=== PATIENT | female | born 1945 | race Caucasian/White ===

== ENCOUNTER 2020-02-16 21:33 | Emergency (ER) | payer MEDICARE, OTHER ==
[~2020-02-16] VITALS: Ht 144.8 cm; Wt 47.7 kg
[2020-02-16 22:28] VITALS: BP 131/86
--- NOTE | 2020-02-16 23:51 | PHYS DOC ---
Past Medical History Past Medical History: High Cholesterol, Hypertension Past Surgical History: Tonsillectomy, Other Additional Past Surgical Histo: BACK SX Smoking Status: Never Smoker Alcohol Use: None General Adult EDM: Chief Complaint: HEAD INJURY/TRAUMA HPI: HPI: Patient is a 74 year old female who presents with report of head injury after falling yesterday. Patient states that she had fallen backwards and struck the back of her head. She denies having had loss of consciousness. She states that she had finally gotten bleeding under control by the time she went to bed but she has had some headache as well as dizziness and nausea ever since the injury. She states that her doctor instructed her to come in and be evaluated and get CT done. She states that the dizziness feels like things are spinning and states that it is not really bad until she goes from a seated to a standing position or turns her head really quickly. She denies having had any vomiting but states that she is just been nauseated. [] Review of Systems: Review of Systems: Constitutional: Denies fever or chills. [] Respiratory: Denies cough or shortness of breath. [] Cardiovascular: Denies chest pain or edema. [] GI: Denies abdominal pain, vomiting or diarrhea. [] Musculoskeletal: Complains of neck and upper back pain. [] Integument: Denies rash. [] Neurologic: Admits to headache without focal weakness or sensory changes. Patient complains of vertiginous dizziness. [] Heart Score: Risk Factors: Risk Factors: DM, Current or recent (<one month) smoker, HTN, HLP, family history of CAD, obesity. Risk Scores: Score 0 - 3: 2.5% MACE over next 6 weeks - Discharge Home Score 4 - 6: 20.3% MACE over next 6 weeks - Admit for Clinical Observation Score 7 - 10: 72.7% MACE over next 6 weeks - Early Invasive Strategies Allergies: Allergies: Allergies Uncoded Allergies Type Severity Reaction Last Updated Verified PENICILLIN Allergy Unknown 02/16/20 Physical Exam: PE: Constitutional: Well developed, well nourished, no acute distress, non-toxic appearance. [] HENT: Normocephalic, with small healing laceration to the mid parietal region of scalp, bilateral external ears normal, oropharynx moist, no oral exudates, nose normal. [] Eyes: PERRLA, EOMI, conjunctiva normal, no discharge. [] Neck: Normal range of motion, with suboccipital tenderness bilaterally. [] Cardiovascular: Regular rate and rhythm [] Lungs & Thorax: Bilateral breath sounds clear to auscultation [] Extremities: No tenderness, no cyanosis, no clubbing, ROM intact, no edema. [] Neurologic: Alert and oriented X 3, no focal deficits noted. [] Current Patient Data: Vital Signs: Vital Signs Date Time Temp Pulse Resp B/P (MAP) Pulse Ox O2 Delivery O2 Flow Rate FiO2 02/16/20 22:28 98.1 83 16 131/86 (101) 98 Room Air 98.1 EKG: EKG: [] Radiology/Procedures: Radiology/Procedures: [] Impression: PROCEDURE: CT HEAD AND CERVICAL SPINE WO l EXAM: CT HEAD WITHOUT IV CONTRAST CLINICAL HISTORY: fall; head and neck injury COMPARISON: None. TECHNIQUE: Routine CT of the head without contrast. Soft tissues and bone windows were reviewed. PQRS compliance statement - One or more of the following individualized dose reduction techniques were utilized for this study: 1. Automated exposure control 2. Adjustment of the mA and/or kV according to patient size 3. Use of iterative reconstruction technique FINDINGS: There is no evidence of hemorrhage, mass or extra-axial fluid collection. Hart-white differentiation is maintained with no evidence of edema. Subcortical, periventricular as well as deep white matter hypoattenuation likely changes of chronic small vessel disease. There is no mass effect or shift of the intracranial structures. The ventricles, basilar cisterns and cortical sulci are normal in size and configuration for the patients stated age. The cerebellum and brainstem are unremarkable. The calvarium demonstrates no evidence of fracture or focal lesion. There is normal aeration of the visualized paranasal sinuses and mastoid air cells. The visualized portions of the orbits are normal. Small scalp hematoma in the left posterior parietal region. IMPRESSION: No evidence for acute intracranial process. White matter changes likely of chronic small vessel disease. EXAM: CT CERVICAL SPINE WITHOUT IV CONTRAST CLINICAL HISTORY: Reason: fall; head and neck injury / Spl. Instructions: / History: COMPARISON: None available. TECHNIQUE: Helical CT of the cervical spine was performed. Axial, coronal and sagittal reformatted images were also performed. PQRS compliance statement - One or more of the following individualized dose reduction techniques were utilized for this study: 1. Automated exposure control 2. Adjustment of the mA and/or kV according to patient size 3. Use of iterative reconstruction technique FINDINGS: Vertebral body heights are preserved. Severe C4-5 and moderate to severe C5-6 disc height loss. Mild C6-7 disc height loss. Associated small posterior disc bulges at C4-5 and C5-6 resulting in moderate central canal stenosis at these levels. No acute fracture. No spondylolisthesis. Straightening of the normal cervical lordosis. IMPRESSION: 1. Multilevel spondylosis as above 2. Negative acute fracture or subluxation. Electronically signed by: Federico Schuler MD (02/17/2020 12:08 AM) [facility] DICTATED and SIGNED BY: FEDERICO SCHULER MD DATE: 02/17/20 0008 Course & Med Decision Making: Course & Med Decision Making Pertinent Labs and Imaging studies reviewed. (See chart for details) [] Dragon Disclaimer: Dragon Disclaimer: This electronic medical record was generated, in whole or in part, using a voice recognition dictation system. Departure Departure Impression: Primary Impression: Closed head injury Qualified Codes: S09.90XA - Unspecified injury of head, initial encounter Additional Impression: Cervical sprain Qualified Codes: S13.9XXA - Sprain of joints and ligaments of unspecified parts of neck, initial encounter Disposition: HOME, SELF-CARE Condition: STABLE Referrals: JADA SO (PCP) Patient Instructions: Cervical Sprain, Head Injury, Adult Scripts Tramadol Hcl (TRAMADOL HCL) 50 Mg Tablet 50 MG PO Q6HRS PRN for PAIN, #12 TAB Prov: CATINA LOZA Jr. DO 02/17/20 Cyclobenzaprine Hcl (CYCLOBENZAPRINE HCL) 5 Mg Tablet 1 TAB PO TID PRN for MUSCLE SPASMS, #15 TAB Prov: CATINA LOZA Jr. DO 02/17/20 CATINA LOZA Jr. DO February 16, 2020 23:51
--- NOTE | 2020-02-17 00:11 | RAD ---
l EXAM: CT HEAD WITHOUT IV CONTRAST CLINICAL HISTORY: fall; head and neck injury COMPARISON: None. TECHNIQUE: Routine CT of the head without contrast. Soft tissues and bone windows were reviewed. PQRS compliance statement - One or more of the following individualized dose reduction techniques were utilized for this study: 1. Automated exposure control 2. Adjustment of the mA and/or kV according to patient size 3. Use of iterative reconstruction technique FINDINGS: There is no evidence of hemorrhage, mass or extra-axial fluid collection. Hart-white differentiation is maintained with no evidence of edema. Subcortical, periventricular as well as deep white matter hypoattenuation likely changes of chronic small vessel disease. There is no mass effect or shift of the intracranial structures. The ventricles, basilar cisterns and cortical sulci are normal in size and configuration for the patients stated age. The cerebellum and brainstem are unremarkable. The calvarium demonstrates no evidence of fracture or focal lesion. There is normal aeration of the visualized paranasal sinuses and mastoid air cells. The visualized portions of the orbits are normal. Small scalp hematoma in the left posterior parietal region. IMPRESSION: No evidence for acute intracranial process. White matter changes likely of chronic small vessel disease. EXAM: CT CERVICAL SPINE WITHOUT IV CONTRAST CLINICAL HISTORY: Reason: fall; head and neck injury / Spl. Instructions: / History: COMPARISON: None available. TECHNIQUE: Helical CT of the cervical spine was performed. Axial, coronal and sagittal reformatted images were also performed. PQRS compliance statement - One or more of the following individualized dose reduction techniques were utilized for this study: 1. Automated exposure control 2. Adjustment of the mA and/or kV according to patient size 3. Use of iterative reconstruction technique FINDINGS: Vertebral body heights are preserved. Severe C4-5 and moderate to severe C5-6 disc height loss. Mild C6-7 disc height loss. Associated small posterior disc bulges at C4-5 and C5-6 resulting in moderate central canal stenosis at these levels. No acute fracture. No spondylolisthesis. Straightening of the normal cervical lordosis. IMPRESSION: 1. Multilevel spondylosis as above 2. Negative acute fracture or subluxation. Electronically signed by: Federico Bryan MD (02/17/2020 12:08 AM) [facility]
[2020-02-17] MEDS ORDERED: TRAM50TA PO (00:37)
[2020-02-17] MEDS ORDERED: CYCL5TAB PO (00:37)
== END 2020-02-17 00:40 | disposition home or self-care (01) ==
LOC: ER 21:33
DX: S13.9XXA Sprain of joints and ligaments of unspecified parts of neck, initial encounter (principal); S09.90XA Unspecified injury of head, initial encounter; R42 Dizziness and giddiness; R51 Headache; I10 Essential (primary) hypertension; E78.00 Pure hypercholesterolemia, unspecified; Z88.0 Allergy status to penicillin; W18.09XA Striking against other object with subsequent fall, initial encounter; Y93.89 Activity, other specified; Y92.89 Other specified places as the place of occurrence of the external cause; Y99.8 Other external cause status
CPT/HCPCS: 70450; 72125; 99285-25